=== PATIENT | female | born 1970 | race African-American/Black ===

== ENCOUNTER 2016-12-27 18:38 | Inpatient (IN) | payer OTHER ==
[~2016-12-27] VITALS: Ht 180.3 cm; Wt 49.9 kg
[2016-12-27] MEDS ORDERED: SODIUM CHLORIDE 0.9% 1,000 ML IV ONE (20:02)
[2016-12-27 20:44] LABS: HEMATOCRIT. 24.4 % (36.0-48.0); HEMOGLOBIN. 8.6 g/dL (12.0-16.0); MEAN CORPUSCULAR HEMOGLOBIN 30.4 pg (28.0-32.0); MEAN CORPUSCULAR VOLUME 86.1 fL (81.0-99.0); MEAN PLATELET VOLUME 6.5 fl (7.4-10.4); PLATELET 210 x1000/uL (130-400); RED BLOOD CELL COUNT 2.84 mill/uL (4.2-5.4); RED CELL DISTRIBUTION WIDTH 19.3 % (11.6-14.6)
[2016-12-27 20:53] LABS: INR 1.2; PROTHROMBIN TIME 12.1 sec (9.4-11.6)
[2016-12-27 20:57] LABS: CARBON DIOXIDE 25 mEq/L (21-32); CHLORIDE 94 mEq/L (98-107)
[2016-12-27 20:58] LABS: TROPONIN I < 0.02 ng/mL (0.00-0.04)
[2016-12-27] MEDS ORDERED: HYDROCODONE/ACETAMINOPHEN 10/325MG TABLET PO ONE (21:45)
[2016-12-27] MEDS ORDERED: POTASSIUM CHLORIDE 20MEQ TABLET SR PO ONE (22:00)
[2016-12-27 22:05] LABS: PLATELET ESTIMATE NORMAL
[2016-12-28] VITALS (7 sets, daily range): BP systolic 90–100; BP diastolic 61–71
[2016-12-28] MEDS ORDERED: HYDROCODONE/ACETAMINOPHEN 5/325MG TABLET PO PRN (01:00)
[2016-12-28] MEDS ORDERED: HYDR-3933 PO (01:43)
[2016-12-28] MEDS ORDERED: POTA10TA15 PO (01:48)
[2016-12-28] MEDS ORDERED: POTASSIUM CHLORIDE 20MEQ TABLET SR PO NR (02:00)
[2016-12-28] MEDS: SODIUM CHLORIDE 0.9% 1,000 ML IV SCH ×3 (02:10→22:15)
[2016-12-28] MEDS ORDERED: SULF1TAB48 PO (05:22)
[2016-12-28] MEDS ORDERED: CIPR-213 PO (05:22)
[2016-12-28] MEDS ORDERED: HYDROCODONE/ACETAMINOPHEN 10/325MG TABLET PO PRN (05:30)
[2016-12-28] MEDS ORDERED: ONDANSETRON HCL 4MG/2ML VIAL IV PRN (06:00)
[2016-12-28 08:11] LABS: HEMOGLOBIN. 8.1 g/dL (12.0-16.0); MEAN CORPUSCULAR HEMOGLOBIN 30.5 pg (28.0-32.0); MEAN CORPUSCULAR VOLUME 86.7 fL (81.0-99.0); MEAN PLATELET VOLUME 7.2 fl (7.4-10.4); PLATELET 188 x1000/uL (130-400); RED BLOOD CELL COUNT 2.65 mill/uL (4.2-5.4); RED CELL DISTRIBUTION WIDTH 18.6 % (11.6-14.6)
[2016-12-28] MEDS: POTASSIUM CHLORIDE 20MEQ TABLET SR PO SCH (08:44)
[2016-12-28] MEDS: ENOXAPARIN 30MG/0.3ML SYR SUBCUT SCH (08:44)
[2016-12-28] MEDS ORDERED: POTASSIUM CHLORIDE PO SCH (09:00)
[2016-12-28] MEDS ORDERED: ENOXAPARIN 40MG/0.4ML SYR SUBCUT SCH (09:00)
[2016-12-28 09:19] LABS: CHLORIDE 101 mEq/L (98-107)
[2016-12-28 09:24] LABS: CARBON DIOXIDE 22 mEq/L (21-32)
[2016-12-28] MEDS ORDERED: LEVOFLOXACIN 500MG TABLET PO SCH (11:00)
[2016-12-28 11:22] LABS: PLATELET ESTIMATE NORMAL
[2016-12-28] MEDS: LEVOFLOXACIN 250MG TABLET PO SCH (11:32)
[2016-12-28] MEDS: METOCLOPRAMIDE HCL 10MG/2ML VIAL IV SCH ×2 (12:50→17:35)
[2016-12-28] MEDS: HYDROCODONE/ACETAMINOPHEN 10/325MG TABLET PO PRN ×2 (12:53→22:53)
[2016-12-28] MEDS: DOCUSATE SODIUM 100MG CAPSULE PO SCH (17:35)
[2016-12-29] VITALS: BP 105/70
[2016-12-29] MEDS: METOCLOPRAMIDE HCL 10MG/2ML VIAL IV SCH ×3 (00:25→11:24)
[2016-12-29 04:00] VITALS: BP 102/70
[2016-12-29 08:00] VITALS: BP 92/67
[2016-12-29 08:02] LABS: HEMATOCRIT. 24.5 % (36.0-48.0); HEMOGLOBIN. 8.5 g/dL (12.0-16.0); MEAN CORPUSCULAR HEMOGLOBIN 30.2 pg (28.0-32.0); MEAN CORPUSCULAR VOLUME 87.5 fL (81.0-99.0); MEAN PLATELET VOLUME 6.9 fl (7.4-10.4); PLATELET 210 x1000/uL (130-400); RED BLOOD CELL COUNT 2.81 mill/uL (4.2-5.4); RED CELL DISTRIBUTION WIDTH 19.5 % (11.6-14.6)
[2016-12-29] MEDS: SODIUM CHLORIDE 0.9% 1,000 ML IV SCH (08:26)
[2016-12-29] MEDS: POTASSIUM CHLORIDE 20MEQ TABLET SR PO SCH (08:29)
[2016-12-29] MEDS: HYDROCODONE/ACETAMINOPHEN 10/325MG TABLET PO PRN (08:30)
[2016-12-29] MEDS: DOCUSATE SODIUM 100MG CAPSULE PO SCH (08:30)
[2016-12-29] MEDS: ENOXAPARIN 30MG/0.3ML SYR SUBCUT SCH (08:31)
[2016-12-29] MEDS: LEVOFLOXACIN 250MG TABLET PO SCH (11:24)
[2016-12-29 12:00] VITALS: BP 101/72
[2016-12-29] MEDS ORDERED: POTASSIUM CHLORIDE 20MEQ TABLET SR PO SCH (12:45)
[2016-12-29 15:24] VITALS: BP 101/72
[2016-12-30 14:53] LABS: PLATELET ESTIMATE NORMAL
== END 2016-12-29 16:25 | disposition home or self-care (01) | DRG 207 ==
LOC: ER 21:01 → 8WST 23:04 → EDBEDREQSVC 23:06 → EDBEDREQ 23:06 → ENRESERV 23:33
PROVIDERS: ADMIT Internal Medicine; ATTEND Internal Medicine
DX: I95.9 Hypotension, unspecified (principal); N17.0 Acute kidney failure with tubular necrosis; E43 Unspecified severe protein-calorie malnutrition; R65.10 Systemic inflammatory response syndrome (SIRS) of non-infectious origin without acute organ dysfunction; C53.9 Malignant neoplasm of cervix uteri, unspecified; E86.0 Dehydration; R62.7 Adult failure to thrive; E86.1 Hypovolemia; E87.6 Hypokalemia; N18.9 Chronic kidney disease, unspecified; D64.9 Anemia, unspecified; Z79.899 Other long term (current) drug therapy; Z92.21 Personal history of antineoplastic chemotherapy; Z86.73 Personal history of transient ischemic attack (TIA), and cerebral infarction without residual deficits
CPT/HCPCS: 36415; 71010; 80048; 80053; 83605; 83690; 83880; 84484; 85025; 85610; 93005; 96360; 96361; 99285; J1650; J2405; J2765; J7030

== ENCOUNTER 2017-01-16 18:39 | Emergency (ER) | payer OTHER ==
[~2017-01-16] VITALS: Ht 160 cm; Wt 37.0 kg
[~2017-01-16 18:39] MED LIST: HYDR-3933 PO; POTA10TA15 PO
[2017-01-16] MEDS ORDERED: SODIUM CHLORIDE 0.9% 1,000 ML IV ONE (19:00)
[2017-01-16] MEDS ORDERED: ONDANSETRON HCL 4MG/2ML VIAL IV STA (19:00)
[2017-01-16] MEDS ORDERED: IPRATROPIUM BROMIDE (0.02%) 0.5MG/2.5ML NEB HHN STA (19:02)
[2017-01-16] MEDS ORDERED: ALBUTEROL (0.083%) 2.5MG/3ML NEB HHN STA (19:02)
[2017-01-16] MEDS ORDERED: METHYLPREDNISOLONE SOD SUCC 125 MG/2 ML VIAL IV ONE (19:30)
[2017-01-16 19:55] LABS: HEMATOCRIT. 25.1 % (36.0-48.0); HEMOGLOBIN. 8.6 g/dL (12.0-16.0); MEAN CORPUSCULAR HEMOGLOBIN 30.3 pg (28.0-32.0); MEAN CORPUSCULAR VOLUME 88.9 fL (81.0-99.0); MEAN PLATELET VOLUME 7.2 fl (7.4-10.4); PLATELET 342 x1000/uL (130-400); RED BLOOD CELL COUNT 2.83 mill/uL (4.2-5.4); RED CELL DISTRIBUTION WIDTH 20.8 % (11.6-14.6)
[2017-01-16 20:03] LABS: HCG SCREEN NEGATIVE
[2017-01-16 20:04] LABS: INR 1.1; PARTIAL THROMBOPLASTIN TIME 26.9 sec (23.4-31.0); PROTHROMBIN TIME 11.4 sec (9.4-11.6)
[2017-01-16 20:06] LABS: CARBON DIOXIDE 28 mEq/L (21-32); CHLORIDE 93 mEq/L (98-107)
[2017-01-16 20:10] LABS: CREATINE KINASE 32 IU/L (26-192)
[2017-01-16 20:11] LABS: TROPONIN I < 0.02 ng/mL (0.00-0.04)
[2017-01-16 20:13] LABS: CREATINE KINASE MB FRACTION 1.2 ng/mL (0.5-3.6)
[2017-01-16] MEDS ORDERED: MAGNESIUM 2 G PREMIX 50 ML IV ONE (20:15)
[2017-01-16] MEDS ORDERED: MORPHINE SULFATE 4 MG/ML CPJ (NOT FOR IM USE) IV ONE (20:15)
[2017-01-16] MEDS ORDERED: ONDANSETRON HCL 4MG/2ML VIAL IV ONE (20:15)
[2017-01-16 20:21] LABS: PLATELET ESTIMATE NORMAL
[2017-01-16] MEDS ORDERED: POTASSIUM CHLORIDE 20MEQ TABLET SR PO ONE (20:30)
[2017-01-16 21:25] VITALS: BP 97/65
== END 2017-01-16 21:35 | disposition home or self-care (01) ==
LOC: ER 18:39
DX: C53.9 Malignant neoplasm of cervix uteri, unspecified (principal); C79.89 Secondary malignant neoplasm of other specified sites; R53.1 Weakness; E86.0 Dehydration; I95.9 Hypotension, unspecified; E87.8 Other disorders of electrolyte and fluid balance, not elsewhere classified; R10.9 Unspecified abdominal pain; Z66 Do not resuscitate
CPT/HCPCS: 36415; 71010; 80053; 82550; 82553; 83690; 83735; 83880; 84484; 84703; 85025; 85610; 85730; 93005; 94640; 96361; 96365; 96375; 99285; J2270; J2405; J2930; J3475; J7030; J7611; Z7610

== ENCOUNTER 2017-02-04 16:52 | Inpatient (IN) | payer OTHER ==
[~2017-02-04] VITALS: Ht 162.6 cm; Wt 50.0 kg
[2017-02-04] MEDS ORDERED: SODIUM CHLORIDE 0.9% 1,000 ML IV ONE (18:12)
[2017-02-04] MEDS ORDERED: KETOROLAC 30MG/ML VIAL IV STA (18:12)
[2017-02-04] MEDS ORDERED: ONDANSETRON HCL 4MG/2ML VIAL IV STA (18:12)
[2017-02-04 18:53] LABS: MEAN CORPUSCULAR HEMOGLOBIN 31.1 pg (28.0-32.0); MEAN CORPUSCULAR VOLUME 94.5 fL (81.0-99.0); PLATELET 119 x1000/uL (130-400); RED CELL DISTRIBUTION WIDTH 19.7 % (11.6-14.6)
[2017-02-04 18:56] LABS: HEMOGLOBIN. 6.8 g/dL (12.0-16.0)
[2017-02-04 18:57] LABS: CHLORIDE 106 mEq/L (98-107); HEMATOCRIT. 20.8 % (36.0-48.0)
[2017-02-04 19:05] LABS: CARBON DIOXIDE 22 mEq/L (21-32)
[2017-02-04 19:30] LABS: HCG SCREEN NEGATIVE; INR 1.2; PROTHROMBIN TIME 12.9 sec (9.4-11.6)
[2017-02-04 20:22] LABS: PLATELET ESTIMATE DECREASED
[2017-02-04] MEDS ORDERED: CLONIDINE 0.1MG TABLET PO PRN (22:15)
[2017-02-04] MEDS ORDERED: PANTOPRAZOLE SODIUM 40 MG/VIAL IV SCH (22:15)
[2017-02-04] MEDS ORDERED: MAGNESIUM/ALUMINUM HYDROXIDE/SIMETHICONE 30ML UDC PO PRN (22:15)
[2017-02-04] MEDS ORDERED: HYDROCODONE/ACETAMINOPHEN 5/325MG TABLET PO PRN (22:15)
[2017-02-04] MEDS ORDERED: MORPHINE SULFATE 2 MG/ML CPJ (NOT FOR IM USE) IV PRN (22:15)
[2017-02-04] MEDS ORDERED: ACETAMINOPHEN 325MG TABLET PO PRN (22:15)
[2017-02-04] MEDS ORDERED: IPRATROPIUM/ALBUTEROL 0.5-3(2.5)MG/3ML NEB INH PRN (22:15)
[2017-02-04 23:31] LABS: CLARITY URINE CLOUDY (CLEAR); COLOR URINE YELLOW (YELLOW); GLUCOSE URINE NEGATIVE (NEGATIVE); KETONES URINE NEGATIVE (NEGATIVE); LEUKOCYTE ESTERASE URINE 3+ (NEGATIVE); NITRITE URINE NEGATIVE (NEGATIVE); OCCULT BLOOD URINE 1+ (NEGATIVE); PROTEIN URINE TRACE (NEGATIVE); SPECIFIC GRAVITY URINE 1.021 (1.005-1.030); UROBILINOGEN URINE 0.2 E.U./dL (0.2-1.0)
[2017-02-05] VITALS (11 sets, daily range): BP systolic 93–120; BP diastolic 49–79
[2017-02-05 00:02] LABS: *AMPHETAMINES SCREEN URINE NEGATIVE (NEGATIVE); *BARBITURATES SCREEN URINE NEGATIVE (NEGATIVE); *BENZODIAZEPINES SCREEN URINE NEGATIVE (NEGATIVE); *COCAINE SCREEN URINE NEGATIVE (NEGATIVE); CANNABINOID URINE SCREEN NEGATIVE (NEGATIVE); METHADONE URINE SCREEN NEGATIVE (NEGATIVE); PHENCYCLIDINE URINE SCREEN NEGATIVE (NEGATIVE)
[2017-02-05 00:04] LABS: OPIATES URINE SCREEN PRESUMTIVE POSITIVE (NEGATIVE)
[2017-02-05] MEDS ORDERED: CEFTRIAXONE 1 G PREMIX 50 ML IV ONE (02:00)
[2017-02-05] MEDS: SODIUM CHLORIDE 0.9% 1,000 ML IV SCH ×2 (03:56→10:42)
[2017-02-05] MEDS: PANTOPRAZOLE SODIUM 40 MG/VIAL IV SCH (08:22)
[2017-02-05 09:47] LABS: HEMATOCRIT. 24.4 % (36.0-48.0); HEMOGLOBIN. 8.3 g/dL (12.0-16.0); MEAN CORPUSCULAR HEMOGLOBIN 30.1 pg (28.0-32.0); MEAN CORPUSCULAR VOLUME 88.5 fL (81.0-99.0); MEAN PLATELET VOLUME 7.5 fl (7.4-10.4); PLATELET 168 x1000/uL (130-400); RED BLOOD CELL COUNT 2.76 mill/uL (4.2-5.4)
[2017-02-05 10:23] LABS: CREATINE KINASE 47 IU/L (26-192); CREATINE KINASE MB FRACTION 1.5 ng/mL (0.5-3.6); TROPONIN I < 0.02 ng/mL (0.00-0.04)
[2017-02-05 15:42] LABS: PLATELET ESTIMATE NORMAL
[2017-02-05] MEDS ORDERED: MORPHINE SULFATE 4 MG/ML CPJ (NOT FOR IM USE) IV PRN (17:13)
[2017-02-05] MEDS: ONDANSETRON HCL 4MG/2ML VIAL IV PRN (22:58)
[2017-02-06] VITALS (12 sets, daily range): BP systolic 97–129; BP diastolic 55–83
[2017-02-06] MEDS: SODIUM CHLORIDE 0.9% 1,000 ML IV SCH ×3 (04:25→21:00)
[2017-02-06] MEDS: CEFTRIAXONE 1 G PREMIX 50 ML IV SCH (04:25)
[2017-02-06 06:29] LABS: HEMATOCRIT. 25.8 % (36.0-48.0); HEMOGLOBIN. 8.5 g/dL (12.0-16.0); MEAN CORPUSCULAR VOLUME 90.6 fL (81.0-99.0); MEAN PLATELET VOLUME 7.8 fl (7.4-10.4); PLATELET 142 x1000/uL (130-400); RED BLOOD CELL COUNT 2.85 mill/uL (4.2-5.4); RED CELL DISTRIBUTION WIDTH 19.9 % (11.6-14.6)
[2017-02-06] MEDS: PANTOPRAZOLE SODIUM 40 MG/VIAL IV SCH (08:49)
[2017-02-06] MEDS: ONDANSETRON HCL 4MG/2ML VIAL IV PRN (09:39)
[2017-02-06] MEDS ORDERED: POTASSIUM CHLORIDE 20MEQ TABLET SR PO SCH (10:30)
[2017-02-06 16:38] LABS: PLATELET ESTIMATE NORMAL
[2017-02-07] VITALS (13 sets, daily range): BP systolic 101–126; BP diastolic 64–96
[2017-02-07] MEDS: CEFTRIAXONE 1 G PREMIX 50 ML IV SCH (01:07)
[2017-02-07] MEDS: PANTOPRAZOLE SODIUM 40 MG/VIAL IV SCH (08:09)
[2017-02-07 10:46] LABS: HEMATOCRIT. 25.3 % (36.0-48.0); HEMOGLOBIN. 8.2 g/dL (12.0-16.0); MEAN CORPUSCULAR HEMOGLOBIN 30.3 pg (28.0-32.0); MEAN CORPUSCULAR VOLUME 93.6 fL (81.0-99.0); MEAN PLATELET VOLUME 7.8 fl (7.4-10.4); PLATELET 131 x1000/uL (130-400)
[2017-02-07] MEDS: SODIUM CHLORIDE 0.9% 1,000 ML IV SCH (11:48)
[2017-02-07 13:57] LABS: PLATELET ESTIMATE NORMAL
[2017-02-07 18:08] LABS: HEPATITIS B SURFACE ANTIGEN NEGATIVE
[2017-02-07 18:11] LABS: VITAMIN B12 SERUM 1345 pg/mL (211-911)
[2017-02-07 18:17] LABS: FERRITIN 1263 ng/mL (10-291)
[2017-02-07 18:36] LABS: HEPATITIS B CORE AB IGM NEGATIVE
[2017-02-07 18:38] LABS: HEPATITIS A AB IGM NEGATIVE (NEGATIVE)
[2017-02-08] VITALS (15 sets, daily range): BP systolic 97–158; BP diastolic 64–99
[2017-02-08] MEDS: CEFTRIAXONE 1 G PREMIX 50 ML IV SCH (02:54)
[2017-02-08 07:15] LABS: HEMATOCRIT. 21.6 % (36.0-48.0); HEMOGLOBIN. 7.3 g/dL (12.0-16.0); MEAN CORPUSCULAR HEMOGLOBIN 30.4 pg (28.0-32.0); MEAN CORPUSCULAR VOLUME 90.3 fL (81.0-99.0); MEAN PLATELET VOLUME 7.9 fl (7.4-10.4); PLATELET 138 x1000/uL (130-400); RED BLOOD CELL COUNT 2.39 mill/uL (4.2-5.4)
[2017-02-08] MEDS: PANTOPRAZOLE SODIUM 40 MG/VIAL IV SCH (09:21)
[2017-02-08] MEDS: SODIUM CHLORIDE 0.45% 1,000 ML IV SCH ×2 (10:29→23:45)
[2017-02-08 12:47] LABS: CREATINE KINASE 50 IU/L (26-192)
[2017-02-08 14:02] LABS: PLATELET ESTIMATE NORMAL
[2017-02-08 18:12] LABS: HEMATOCRIT 23.3 % (36.0-48.0); HEMOGLOBIN 7.7 g/dL (12.0-16.0)
[2017-02-09] VITALS (21 sets, daily range): BP systolic 106–126; BP diastolic 54–93
[2017-02-09] MEDS: CEFTRIAXONE 1 G PREMIX 50 ML IV SCH (01:58)
[2017-02-09 06:47] LABS: MEAN CORPUSCULAR HEMOGLOBIN 30.8 pg (28.0-32.0); MEAN CORPUSCULAR VOLUME 89.7 fL (81.0-99.0); MEAN PLATELET VOLUME 7.4 fl (7.4-10.4); PLATELET 133 x1000/uL (130-400); RED BLOOD CELL COUNT 2.21 mill/uL (4.2-5.4); RED CELL DISTRIBUTION WIDTH 19.2 % (11.6-14.6)
[2017-02-09 06:53] LABS: HEMATOCRIT. 19.8 % (36.0-48.0); HEMOGLOBIN. 6.8 g/dL (12.0-16.0)
[2017-02-09] MEDS ORDERED: FOLIC ACID 0.4MG TABLET PO SCH (09:00)
[2017-02-09] MEDS: PANTOPRAZOLE SODIUM 40 MG/VIAL IV SCH (10:17)
[2017-02-09 13:12] LABS: PLATELET ESTIMATE NORMAL
[2017-02-09 15:12] LABS: ANTI-NUCLEAR ANTIBODIES DIRECT Negative (Negative)
[2017-02-09] MEDS: SODIUM CHLORIDE 0.45% 1,000 ML IV SCH (16:17)
[2017-02-09] MEDS ORDERED: MORPHINE SULFATE 2 MG/ML CPJ (NOT FOR IM USE) IV PRN (17:00)
[2017-02-09] MEDS ORDERED: FOLIC ACID 1MG TABLET PO SCH (17:00)
[2017-02-10] VITALS (12 sets, daily range): BP systolic 114–125; BP diastolic 50–90
[2017-02-10] MEDS: SODIUM CHLORIDE 0.45% 1,000 ML IV SCH (02:59)
[2017-02-10] MEDS: CEFTRIAXONE 1 G PREMIX 50 ML IV SCH (02:59)
[2017-02-10 06:18] LABS: COMPLEMENT C3 112 mg/dL (82-167)
[2017-02-10 06:47] LABS: HEMOGLOBIN. 11.4 g/dL (12.0-16.0); MEAN CORPUSCULAR HEMOGLOBIN 30.6 pg (28.0-32.0); MEAN CORPUSCULAR VOLUME 88.4 fL (81.0-99.0); MEAN PLATELET VOLUME 7.7 fl (7.4-10.4); PLATELET 117 x1000/uL (130-400); RED BLOOD CELL COUNT 3.73 mill/uL (4.2-5.4); RED CELL DISTRIBUTION WIDTH 19.7 % (11.6-14.6)
[2017-02-10] MEDS: PANTOPRAZOLE SODIUM 40 MG/VIAL IV SCH (09:22)
[2017-02-10 09:25] LABS: PHOSPHORUS 1.7 mg/dL (2.5-4.9)
[2017-02-10] MEDS ORDERED: MAGNESIUM 4 G PREMIX 100 ML IV NR (11:00)
[2017-02-10 13:29] LABS: PLATELET ESTIMATE SLIGHTLY DECREASED
[2017-02-10] MEDS ORDERED: POTASSIUM PHOS,M-BASIC-D-BASIC 15 MMOL in DEXT 5% WATER 245 ML IV NR (14:00)
== END 2017-02-10 16:45 | disposition home or self-care (01) | DRG 463 ==
LOC: ER 16:52 → CANRESERV 20:48 → ENRESERV 20:48 → CANRESERV 20:49 → 5EST 22:18 → EDBEDREQSVC 22:30 → EDBEDREQTM 22:30 → ENRESERV 02-05 01:06 → ER 02-05 02:32
PROVIDERS: ADMIT Internal Medicine; ATTEND Internal Medicine
PROC: 30233N1 Transfusion of Nonautologous Red Blood Cells into Peripheral Vein, Percutaneous Approach (ICD-10-PCS; 2017-02-04)
PROC: 02HV33Z Insertion of Infusion Device into Superior Vena Cava, Percutaneous Approach (ICD-10-PCS; principal; 2017-02-09)
PROC: B5181ZA Fluoroscopy of Superior Vena Cava using Low Osmolar Contrast, Guidance (ICD-10-PCS; 2017-02-09)
PROC: B548ZZA Ultrasonography of Superior Vena Cava, Guidance (ICD-10-PCS; 2017-02-09)
DX: N13.6 Pyonephrosis (principal); N17.9 Acute kidney failure, unspecified; R65.10 Systemic inflammatory response syndrome (SIRS) of non-infectious origin without acute organ dysfunction; E44.1 Mild protein-calorie malnutrition; N13.30 Unspecified hydronephrosis; E83.51 Hypocalcemia; E86.9 Volume depletion, unspecified; N18.9 Chronic kidney disease, unspecified; D63.1 Anemia in chronic kidney disease; E87.6 Hypokalemia; Z85.41 Personal history of malignant neoplasm of cervix uteri; Z68.1 Body mass index [BMI] 19.9 or less, adult; Z92.21 Personal history of antineoplastic chemotherapy; Z86.73 Personal history of transient ischemic attack (TIA), and cerebral infarction without residual deficits; Z79.899 Other long term (current) drug therapy
CPT/HCPCS: 36415; 36569; 71010; 74176; 76770; 76937; 77001; 80048; 80053; 80305; 81001; 82550; 82553; 82607; 82728; 82746; 82977; 83010; 83540; 83550; 83690; 83735; 84100; 84443; 84484; 84703; 85014; 85018; 85025; 85044; 85384; 85610; 86038; 86160; 86705; 86709; 86803; 86850; 86900; 86920; 87040; 87186; 87340; 93005; 93306; 96361; 96365; 96375; 97110; 97163; 97167; 97530; 99285; C1725; C9113; J0696; J1885; J2270; J2405; J3475; J3490; J7030; J7040; J7050; J7060; P9016

== ENCOUNTER 2017-02-12 17:22 | Inpatient (IN) | payer OTHER ==
[~2017-02-12] VITALS: Ht 165.1 cm; Wt 52.6 kg
[2017-02-12 20:27] LABS: HEMATOCRIT. 37.2 % (36.0-48.0); HEMOGLOBIN. 12.7 g/dL (12.0-16.0); MEAN CORPUSCULAR HEMOGLOBIN 30.2 pg (28.0-32.0); MEAN CORPUSCULAR VOLUME 88.2 fL (81.0-99.0); MEAN PLATELET VOLUME 7.5 fl (7.4-10.4); PLATELET 134 x1000/uL (130-400); RED BLOOD CELL COUNT 4.22 mill/uL (4.2-5.4); RED CELL DISTRIBUTION WIDTH 19.6 % (11.6-14.6)
[2017-02-12 20:33] LABS: HCG SCREEN NEGATIVE
[2017-02-12 20:34] LABS: INR 1.2; PROTHROMBIN TIME 12.5 sec (9.4-11.6)
[2017-02-12 20:42] LABS: CARBON DIOXIDE 16 mEq/L (21-32); CHLORIDE 115 mEq/L (98-107); CREATINE KINASE 72 IU/L (26-192); ETHANOL BLOOD < 10 mg/dL; TROPONIN I < 0.02 ng/mL (0.00-0.04)
[2017-02-12 20:47] LABS: PLATELET ESTIMATE NORMAL
[2017-02-12 22:06] LABS: BG BASE EXCESS -9.1 mmol/L (-2.0-2.0); BG CARBOXYHEMOGLOBIN 0.9 % (0.5-1.5); BG DEOXYHEMOGLOBIN 2.2 % (0.0-5.0); BG FRACTION INSPIRED OXYGEN 21; BG HCO3 ACT 16.1 mmol/L (22.0-26.0); BG METHEMOGLOBIN 0.2 % (0.0-1.5); BG OXYGEN SATURATION 97.8 % (92.0-98.5); BG OXYHEMOGLOBIN 96.7 % (94.0-97.0); BG PCO2 32.9 mmHg (35.0-45.0); BG PH 7.308 (7.350-7.450); BG PO2 106.6 mmHg (75.0-100.0); BG SAMPLE SITE RIGHT RADIAL; BG VENT MODE ROOM AIR
[2017-02-12] MEDS ORDERED: CEFTRIAXONE 1 G PREMIX 50 ML IV ONE (23:30)
[2017-02-12] MEDS ORDERED: SODIUM BICARBONATE 8.4% 1 MEQ/ML 50ML SYR IV ONE (23:30)
[2017-02-12 23:42] LABS: CLARITY URINE CLOUDY (CLEAR); COLOR URINE YELLOW (YELLOW); GLUCOSE URINE NEGATIVE (NEGATIVE); KETONES URINE NEGATIVE (NEGATIVE); LEUKOCYTE ESTERASE URINE NEGATIVE (NEGATIVE); NITRITE URINE NEGATIVE (NEGATIVE); OCCULT BLOOD URINE TRACE (NEGATIVE); PROTEIN URINE NEGATIVE (NEGATIVE); SPECIFIC GRAVITY URINE 1.013 (1.005-1.030); UROBILINOGEN URINE 0.2 E.U./dL (0.2-1.0)
[2017-02-12 23:54] LABS: *AMPHETAMINES SCREEN URINE NEGATIVE (NEGATIVE); *BARBITURATES SCREEN URINE NEGATIVE (NEGATIVE); *BENZODIAZEPINES SCREEN URINE NEGATIVE (NEGATIVE); *COCAINE SCREEN URINE NEGATIVE (NEGATIVE); CANNABINOID URINE SCREEN NEGATIVE (NEGATIVE); METHADONE URINE SCREEN NEGATIVE (NEGATIVE); PHENCYCLIDINE URINE SCREEN NEGATIVE (NEGATIVE)
[2017-02-12 23:55] LABS: OPIATES URINE SCREEN PRESUMTIVE POSITIVE (NEGATIVE)
[2017-02-13 03:28] VITALS: BP 123/86
[2017-02-13 04:00] VITALS: BP 124/78
[2017-02-13 08:00] VITALS: BP 118/87
[2017-02-13] MEDS ORDERED: ACETAMINOPHEN 325MG TABLET PO PRN (10:45)
[2017-02-13] MEDS ORDERED: ONDANSETRON HCL 4MG/2ML VIAL IV PRN (10:45)
[2017-02-13] MEDS ORDERED: IPRATROPIUM/ALBUTEROL 0.5-3(2.5)MG/3ML NEB INH PRN (10:45)
[2017-02-13] MEDS ORDERED: DIPHENHYDRAMINE 50MG/ML VIAL IV PRN (10:45)
[2017-02-13 11:53] VITALS: BP 124/91
[2017-02-13 13:46] LABS: CREATINE KINASE 49 IU/L (26-192)
[2017-02-13 15:56] VITALS: BP 138/93
[2017-02-13 16:42] VITALS: BP 138/93
[2017-02-13] MEDS ORDERED: AZITHROMYCIN 500 MG in DEXT 5% WATER 250 ML IV SCH (18:00)
[2017-02-13] MEDS ORDERED: CEFTRIAXONE 1 G PREMIX 50 ML IV SCH (20:00)
== END 2017-02-13 18:20 | disposition short-term general hospital (02) | DRG 139 ==
LOC: ER 17:29 → 8WST 22:39 → ENRESERV 23:28
PROVIDERS: ADMIT Internal Medicine; ATTEND Internal Medicine
DX: J18.9 Pneumonia, unspecified organism (principal); N17.0 Acute kidney failure with tubular necrosis; E43 Unspecified severe protein-calorie malnutrition; G92 Toxic encephalopathy; E87.2 Acidosis; R65.10 Systemic inflammatory response syndrome (SIRS) of non-infectious origin without acute organ dysfunction; N13.30 Unspecified hydronephrosis; L89.90 Pressure ulcer of unspecified site, unspecified stage; Z86.73 Personal history of transient ischemic attack (TIA), and cerebral infarction without residual deficits; R00.0 Tachycardia, unspecified; R23.3 Spontaneous ecchymoses; N18.9 Chronic kidney disease, unspecified; Z85.41 Personal history of malignant neoplasm of cervix uteri; Z92.21 Personal history of antineoplastic chemotherapy
CPT/HCPCS: 36415; 36600; 51702; 70450; 70551; 71010; 80053; 80305; 81001; 82375; 82550; 82805; 83690; 83880; 84484; 84703; 85025; 85610; 85730; 87040; 87086; 92610; 93005; 96365; 99291; C1893; G0482; J0456; J0696; J3490; J7060; A4315